=== PATIENT | male | born 1945 | race Caucasian/White ===

== ENCOUNTER → 2019-03-10 | Outpatient (CLI) | payer OTHER ==
[~2019-03-10] MED LIST: KEFLEX500 MG PO; NORCO 5-325 TA1 EACH PO; SYNTHROID100 MCG PO; ZOCOR 10 MG TAB10 MG PO
== END ==
LOC: HYPER 13:05
DX: T81.31XA Disruption of external operation (surgical) wound, not elsewhere classified, initial encounter (principal); S11.90XA Unspecified open wound of unspecified part of neck, initial encounter; R60.0 Localized edema; C09.8 Malignant neoplasm of overlapping sites of tonsil; E03.9 Hypothyroidism, unspecified; E78.5 Hyperlipidemia, unspecified; Z87.891 Personal history of nicotine dependence; Z85.46 Personal history of malignant neoplasm of prostate; Z93.1 Gastrostomy status; X58.XXXA Exposure to other specified factors, initial encounter; Y93.89 Activity, other specified; Y99.8 Other external cause status; Y92.89 Other specified places as the place of occurrence of the external cause; Y83.8 Other surgical procedures as the cause of abnormal reaction of the patient, or of later complication, without mention of misadventure at the time of the procedure

== ENCOUNTER → 2019-03-25 | Outpatient (CLI) | payer OTHER | LOC: HYPER 13:03 | DX: T81.31XD Disruption of external operation (surgical) wound, not elsewhere classified, subsequent encounter (principal); S11.90XD Unspecified open wound of unspecified part of neck, subsequent encounter; R60.0 Localized edema; E66.01 Morbid (severe) obesity due to excess calories; E03.9 Hypothyroidism, unspecified; E78.5 Hyperlipidemia, unspecified; Z85.46 Personal history of malignant neoplasm of prostate; Z85.818 Personal history of malignant neoplasm of other sites of lip, oral cavity, and pharynx; Z87.891 Personal history of nicotine dependence; Z68.25 Body mass index [BMI] 25.0-25.9, adult; X58.XXXD Exposure to other specified factors, subsequent encounter; Y83.8 Other surgical procedures as the cause of abnormal reaction of the patient, or of later complication, without mention of misadventure at the time of the procedure ==